=== PATIENT | female | born 1980 | race Caucasian/White ===

== ENCOUNTER 2018-01-22 20:29 | Emergency (ER) | payer MEDICAID ==
[~2018-01-22] VITALS: Ht 162.6 cm; Wt 75.0 kg
[2018-01-22 20:34] VITALS: BP 146/94; PULSE 116; RESP 20; TEMP 98; O2SAT 100
[2018-01-22] MEDS ORDERED: SODIUM CHLOR 0.9% 1000 ML INJ 1,000 ML IV ONE (20:45)
[2018-01-22] MEDS ORDERED: MORPHINE SULFATE 2 MG/ML SYRINGE IV PUSH ONE (20:45)
[2018-01-22] MEDS ORDERED: ONDANSETRON ODT 4 MG TAB PO ONE (20:45)
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
[2018-01-22 21:57] LABS: BICARBONATE 22.1 MEQ/L (21.0-32.0); CALCIUM 8.5 MG/DL (8.5-10.1); CREATININE 0.86 MG/DL (0.50-1.00)
[2018-01-22 21:58] LABS: PROTHROMBIN TIME - PATIENT 10.2 SEC (9.8-11.6)
[2018-01-22] MEDS ORDERED: POTASSIUM CHLORIDE 10 MEQ CONTROLLED RELEASE TAB PO ONE (22:00)
[2018-01-22] MEDS ORDERED: MORPHINE SULFATE 4 MG/ML INJ IV PUSH ONE (22:00)
[2018-01-22] MEDS ORDERED: KETOROLAC TROMETHAMINE 30 MG/ML (IVP) VIAL IV PUSH ONE (22:00)
[2018-01-22] MEDS ORDERED: NORC5TAB PO (22:01)
[2018-01-22] MEDS ORDERED: IBUP1TAB7 PO (22:01)
== END 2018-01-22 22:12 | disposition home or self-care (01) ==
LOC: NEPE 20:29
DX: S06.9X9A Unspecified intracranial injury with loss of consciousness of unspecified duration, initial encounter (principal); Y00.XXXA Assault by blunt object, initial encounter
CPT/HCPCS: 70450; 70486; 72125; 80048; 85610; 85730; 96374; 99284; J1885